=== PATIENT | female | born 1980 | race Caucasian/White ===

== ENCOUNTER 2017-02-26 08:16 | Inpatient (IN) | payer OTHER ==
[~2017-02-26] VITALS: Ht 157.5 cm; Wt 65.8 kg
[2017-02-26] VITALS (13 sets, daily range): BP systolic 90–119; BP diastolic 53–73
[~2017-02-26 08:16] MED LIST: Dexamethasone 20mg/5ml IVP ONE; OXYCODONE HCL15 M1 ORAL; OXYCONTIN20 MG ORAL; ceFAZolin sod 1 GM in NS 55 ML IVPB ONE
[2017-02-26] MEDS ORDERED: KEPPRA500 M4 ORAL (09:14)
[2017-02-26] MEDS ORDERED: OXYCODONE IR15 MG ORAL (09:14)
[2017-02-26] MEDS ORDERED: Chloraseptic Spray 20mL Bottle ORAL PRN (09:30)
[2017-02-26] MEDS ORDERED: LORazepam Inj 2mg/ml 1ml IV PRN ×2 (09:30→10:15)
[2017-02-26] MEDS ORDERED: oxyCODONE 15mg IR tab ORAL PRN (09:30)
[2017-02-26] MEDS ORDERED: Milk of Magnesia 30ml Ud ORAL PRN (09:30)
[2017-02-26] MEDS ORDERED: HYDROmorphone 1mg/ml Carpuject SUBQ PRN (09:30)
[2017-02-26] MEDS ORDERED: fentaNYL 100 mcg/2 mL IV ONE (10:00)
[2017-02-26] MEDS ORDERED: Nimbex 2mg/ml Inj 10ML IVP ONE (10:00)
[2017-02-26] MEDS ORDERED: Lidocaine 1% MPF 10mg/ml 5ml ONE (10:00)
[2017-02-26] MEDS ORDERED: Lidocaine 1% Plain 30 ml INJ ONE (10:00)
[2017-02-26] MEDS ORDERED: Dexamethasone 4mg/ml vial ONE (10:00)
[2017-02-26] MEDS ORDERED: Midazolam 2mg/2ml Inj ONE (10:00)
[2017-02-26] MEDS ORDERED: LR 1000ml ONE (10:00)
[2017-02-26] MEDS ORDERED: Sterile Water Irrig 1000ml IRRIG ONE (10:00)
[2017-02-26] MEDS ORDERED: Glycopyrrolate 0.2mg/ml 1ml Vial ONE (10:00)
[2017-02-26] MEDS ORDERED: Neostigmine 1mg/ml 10ml Inj ONE (10:00)
[2017-02-26] MEDS ORDERED: fentaNYL 250mcg/5ml ONE (10:00)
[2017-02-26] MEDS ORDERED: Propofol 10mg/ml 100ml btl IV ONE (10:00)
[2017-02-26] MEDS ORDERED: NS Irrig 1000ml ONE (10:00)
[2017-02-26] MEDS ORDERED: Bacitracin 50000 Units Vial ONE (10:01)
[2017-02-26] MEDS ORDERED: Thrombin 5000 units TOPIC ONE (10:01)
[2017-02-26] MEDS ORDERED: Surgicel 4in x 8in TOPIC ONE (10:01)
[2017-02-26] MEDS ORDERED: Bupivacaine w/Epi 0.5% 30ml Vial INJ ONE (10:01)
[2017-02-26] MEDS ORDERED: Vancomycin 1gm inj IVPB ONE (10:01)
--- NOTE | 2017-02-26 10:12 | Anethesia Preoperative Eval ---
Anesthesia Pre-op PMH/ROS General Date of Evaluation: Feb 26, 2017 Time of Evaluation: 10:09 Anesthesiologist: Rylie ASA Score: ASA 3 Mallampati Score Class I : Soft palate, uvula, fauces, pillars visible Class II: Soft palate, uvula, fauces visible Class III: Soft palate, base of uvula visible Class IV: Only hard plate visible Mallampati Classification: Class III Surgeon: Kateryna Diagnosis: Neck Pain Surgical Procedure: AACDF C5-6, Posterior Family History: no anesthesia problems Allergies: Coded Allergies: BUPROPION (Verified Allergy, Intermediate, RASH; SWELLING, 05/10/15) CODEINE (Verified Allergy, Intermediate, head itch , 02/26/17) CORTISONE (Verified Allergy, Intermediate, SWELLING; RASH, 05/10/15) LAMOTRIGINE (Verified Allergy, Intermediate, SWELLING ;RASH, 05/10/15) TRAMADOL (Verified Allergy, Intermediate, RASH; SWELLING, 05/10/15) ACETAMINOPHEN (Unverified Adverse Reaction, Intermediate, NAUSEA AND VOMITING, 05/10/15) HYDROCODONE (Unverified Adverse Reaction, Intermediate, NAUSEA AND VOMITING, 05/10/15) Medications: see eMAR Past Medical History Neurologic/Psychiatric: Reports: depression/anxiety, other - Seizures Hematology/Immune: Reports: anemia, other - SLE PSxH Narrative: TL, L ACL , Cervical Spine Anesthesia Pre-op Phys. Exam Physician Exam Last Vital Signs Date Time Temp Pulse Resp B/P Pulse Ox O2 Delivery O2 Flow Rate FiO2 02/26/17 08:53 98.1 75 18 101/57 100 Room Air Constitutional: NAD Neurologic: CN 2-12 intact Cardiovascular: RRR Respiratory: CTA Gastrointestinal: S/NT/ND Airway Exam MO: full ROM: limited Anesthesia Pre-op A/P Labs Urine Test Test 02/26/17 08:35 Urine HCG, Qualitative Negative Risk Assessment & Plan Assessment: ASA 3 Plan: GA, Glidescope, BIS Status Change Before Surgery: No Pre-Antibiotics Dru grams Ancef IV Given Within 1 Hr of Incision: Yes Time Given: 10:31 Mckay Youngblood MD Feb 26, 2017 10:12
[2017-02-26] MEDS ORDERED: LR 1000ml 1,000 ML IVLG SCH (10:13)
[2017-02-26] MEDS ORDERED: fentaNYL 100 mcg/2 mL IV PRN (10:15)
[2017-02-26] MEDS ORDERED: Ketorolac 30mg Inj IV PRN (10:15)
[2017-02-26] MEDS ORDERED: DiphenhydrAMINE 50mg/ml Inj IVP PRN (10:15)
[2017-02-26] MEDS ORDERED: Metoclopramide 10mg/2ml Inj IVP PRN ×2 (10:15→15:45)
[2017-02-26] MEDS ORDERED: Atropine Inj 1mg/10ml Syr IV PRN (10:15)
[2017-02-26] MEDS ORDERED: Ketorolac 60mg Inj IV PRN (10:15)
[2017-02-26] MEDS ORDERED: Midazolam 2mg/2ml Inj IVP PRN (10:15)
--- NOTE | 2017-02-26 10:20 | Pre-Procedure Note/Attestation ---
Pre-Procedure Note/Attestation Complete Prior to Procedure Planned Procedure: not applicable Procedure Narrative: Anterior C5-6 excision pseudarthrosis, removal plate, fusion, possible plate fixation Posterior lateral mass instrumentation with fusion C5-C6 Indications for Procedure Pre-Operative Diagnosis: C5-6 Fracture, pseudarthrosis Attestation I attest that I discussed the nature of the procedure; its benefits; risks and complications; and alternatives (and the risks and benefits of such alternatives ), prior to the procedure, with the patient (or the patient's legal customer response representative). I attest that, if there was a reasonable possibility of needing a blood transfusion, the patient (or the patient's legal customer response representative) was given the [place] Department [employer] Services standardized written summary, pursuant to the [place] Blood Safety Act ([place] Health and Safety Code # 1645, as amended). I attest that I re-evaluated the patient just prior to the surgery and that there has been no change in the patient's H&P, except as documented below: PASCUAL MG Feb 26, 2017 10:20
[2017-02-26] MEDS ORDERED: Acetaminophen (Non formulary) 100 ML IV ONE (11:00)
--- NOTE | 2017-02-26 12:06 | Immediate Post-Op Evaluation ---
Immediate Post-Op Evalulation Immediate Post-Op Evalulation Procedure: ACDF C5-6, Posteior Date of Evaluation: Feb 26, 2017 Time of Evaluation: 14:15 IV Fluids: 1000 LR Blood Products: 0 Estimated Blood Loss: 30 Urinary Output: 400 Blood Pressure Systolic: 92 Blood Pressure Diastolic: 53 Pulse Rate: 57 Respiratory Rate: 16 O2 Sat by Pulse Oximetry: 100 Temperature (Fahrenheit): 97 Pain Score (1-10): 3 Nausea: No Vomiting: No Complications 0 Patient Status: awake, reacts, patent, extubated, none Hydration Status: adequate Dru Grams Ancef IV Given Within 1 Hr of Incision: Yes Time Given: 10:31 Mckay Youngblood MD Feb 26, 2017 12:06
[2017-02-26] MEDS: Meperidine 25mg/0.5ml Inj IV PRN ×2 (14:55→15:03)
--- NOTE | 2017-02-26 15:06 | Diagnostic Imaging Report ---
Indication: Neck Pain Findings: Fluoroscopic views of the cervical spine were obtained. Intraoperative views demonstrating posterior fusion hardware at C5 and C6. The lower extent of the fusion is not seen on any of the images. Impression: Intraoperative imaging
--- NOTE | 2017-02-26 15:31 | Brief Operative Note ---
Immediate Post Operative Note Operative Note Pre-op Diagnosis: C5-6 Fracture, pseudarthrosis Procedure: Operation through scar removal plate C5-6. exploration fusion mass / fracture / pseudarthrosis C5-6 fluroscopy ssep microscope hemivertebrectomy C5, C6 correction deformity aero-c lordotic device incertion C5-6 fusion C5-6 osteoinductive implant C5-C6 posterior lateral mass instrumentation Left C5, C6 factet fusion C5-C6 Post-op Diagnosis: same as pre-op Findings: consistent w/pre-op dx studies Surgeon: Kateryna Hydraulic Design Engineer: Audrey Anesthesiologist: Rylie Anesthesia: general Specimen: none Complications: none Condition: stable Estimated Blood Loss: minimal Drains: none Implant(s) used?: Yes PASCUAL MG Feb 26, 2017 15:31
[2017-02-26] MEDS: D5 1/2NS 1,000 ML IV SCH (17:01)
[2017-02-26] MEDS ORDERED: Docusate 100mg/10ml Liq NG SCH (18:00)
[2017-02-26] MEDS: ceFAZolin sod 1 GM in D5W 55 ML IV SCH (18:35)
[2017-02-26] MEDS: Docusate 100mg cap ORAL SCH (18:37)
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
[2017-02-27] VITALS: BP 98/53
--- NOTE | 2017-02-27 00:15 | Operative Note - Dictated ---
SURGEON: Philip Avendaño Ph.D. M.D. SUPERVISOR COIL WINDING SURGEON: Jerald Ch M.D. ANESTHESIA: Dr. Rylie arita with intubation. ESTIMATED BLOOD LOSS: Minimal. ADMITTING/PREOPERATIVE DIAGNOSIS: C5-C6 fracture/pseudoarthrosis. POSTOPERATIVE DIAGNOSIS: C5-C6 fracture/pseudoarthrosis. OPERATIVE PROCEDURES: 1. Anterior operation through scar tissue. 2. Removal of anterior internal plate fixation C5-C6. 3. Exploration of fusion mass. 4. Excision of pseudarthrosis/fracture. 5. Pollo-vertebrectomy C5 and pollo-vertebrectomy C6. 6. Interpositional Aero-C lordotic interbody device with correction of deformity. 7. Fusion C5-C6. 8. SSEP monitoring. 9. High-power microscopic dissection. 10. Fluoroscopic imaging interpreted by surgeons. 11. Posterior facet fusion right C5-C6. 12. Placement posterior inductive material anterior C5-C6. 13. Posterior right facet fusion C5-C6. 14. Lateral mass instrumentation C5-C6. 15. Intraoperative fluoroscopy interpreted by surgeons. OPERATIVE PROCEDURE: The patient brought to the operating room and in the supine position. General anesthesia with intubation was induced. IV antibiotics, IV Decadron were administered prior to incision time 30 minutes. Anterior cervical spine was sterilely prepped and draped free in usual sterile fashion. Utilizing the prior left transverse incision, sharp dissection was carried through scar tissue, dermis and epidermis. Electrocautery dissection was carried through scar tissue and subcutaneous tissue to the level of the platysmas muscle that was identified, isolated, and transected in line with the incision. Blunt dissection was carried through scar tissue medial to the carotid sheath and the left sternocleidomastoid muscle through the deep cervical and pretracheal fascia to the midline between the right and left longus colli muscles. Anterior internal plate fixation was identified and isolated. Retractors placed. Anterior internal fixation plate was removed. The screws were noted to be loose. Plate intact. No evidence of screw fracture. Exploration was undertaken of the anterior fusion mass C5-C6. Under high-power magnification, Midas Mukund bur dissection was utilized for excision of the interpositional graft at C5-C6, with motion-grossly noted. Pollo-vertebrectomy was undertaken inferior C5 and superior C6. Appropriate dimensions Aero-C lordotic graft was placed with correction of kyphosis to lordosis. SSEP monitoring stable at all times. Fixation was undertaken with the Aero-C cephalad, caudad. Fluoroscopy demonstrated excellent alignment and positioning. Aero-C contained a combination of autograft and osteoinductive material for fusion. Wound was irrigated with antibiotic-containing saline. Exploration did not reveal any excoriation or laceration of vital structures. FloSeal was minimally applied overlying the graft area. A 500 mg of vancomycin powder applied. Sequential reapproximation the platysmas muscle, subcutaneous tissue dermis and epidermis. Dermis and epidermis further reapproximated with surgical strips and sterile bandage maintain place with tape. The patient was carefully turned maintaining neutral posture of the cervical spine at all times the prone position on a new operating table. All new instruments were utilized. After appropriate position, posterior cervical spine was sterilely prepped and draped free in usual sterile fashion. Cross-table imaging with a spinal needle placed under sterile conditions, percutaneously in the subcutaneous tissue only for determination of incision placement. Level was marked. Needle was removed. Longitudinal midline incision was placed in dermis and epidermis. Electrocautery dissection was carried to the subcutaneous tissue to the level of the cervical thoracic fascia was incised right of midline with exposure of the facets of C5 and C6. Confirmation of fluoroscopic guidance with markers. Fluoroscopic with the facet joint complex was denuded of cartilage. Packed with osteo inductive material for fusion. Lateral mass instrumentation was undertaken of the appropriate dimensions at C5 and C6. Probing of the hole drill by hand revealed intact cortical margins. SSEP monitoring stable. Tapping was undertaken followed with screw insertion with excellent fixation. Appropriate screw depth was utilized. Interpositional appropriate length of j carlos was placed and torqued into position. Wound was irrigated with antibiotic-containing saline with care taken to not dislodge the osteopromotive/inductive material facet fusion. A 1 g vancomycin powder applied. Reapproximation sequentially with Vicryl suture material cervicothoracic fascia subcutaneous tissue, dermis and epidermis. Staple sutures applied. Sterile bands applied maintained in place with tape. The patient carefully turned to the prone position from the prone to the supine position on the transport bed. The patient awakened extubated in the operating room, and transported to postop recovery in good stable condition. Philip Avendaño M.D. DR: Brigida JOB#: [id number] CC: Jerald Ch M.D.; Fax#: [phone]
--- NOTE | 2017-02-27 00:40 | 48 Hour Post Anesthesia Eval ---
Post Anesthesia Evaluation Procedure: ACDF C5-6, Posteior Date of Evaluation: Feb 27, 2017 Time of Evaluation: 11:56 Blood Pressure Systolic: 90 0: 56 Pulse Rate: 82 Respiratory Rate: 20 Temperature (Fahrenheit): 98.3 O2 Sat by Pulse Oximetry: 95 Airway: patent Nausea: No Vomiting: No Pain Intensity: 2 Hydration Status: adequate Cardiopulmonary Status: Stable Mental Status/LOC: patient returned to baseline Follow-up Care/Observations: 0 Post-Anesthesia Complications: 0 Follow-up care needed: N/A Mckay Youngblood MD Feb 27, 2017 00:40
[2017-02-27] MEDS: ceFAZolin sod 1 GM in D5W 55 ML IV SCH ×2 (01:34→09:43)
[2017-02-27] MEDS: D5 1/2NS 1,000 ML IV SCH (03:00)
[2017-02-27 04:00] VITALS: BP 95/60
--- NOTE | 2017-02-27 07:30 | Progress Note ---
DATE: 02/27/2017 ACUTE PAIN MANAGEMENT PHYSICIAN PROGRESS NOTE MEDICATIONS: Medication administration record reviewed. Medications include Chloraseptic spray, Protonix, oxycodone, Zofran, Reglan, Demerol, milk of magnesia, Ativan, Keppra, Dilaudid, Colace, Benadryl, Valium, Catapres, and Mylanta. LABORATORY STUDIES: No interval laboratory studies. OBJECTIVE: VITAL SIGNS: Afebrile, pulse 76, respirations 20, blood pressure 95/60, and oxygen saturation 94% on supplemental oxygen. I spent over 60 minutes in consultation today. I saw the patient at bedside with the nurse RN, Boris. The patient has been swallowing, breathing, and phonating within normal limits. A soft collar is in place. Nasal cannula oxygen is in place and the patient is breathing comfortably. She is grossly neurologically intact. Moving all extremities x4. The patient has been voiding plenty of urine and tolerating liquids with good intake and no nausea. After further detailed discussion continued from yesterday, the patient now states that she has been seen her outpatient pain doctor and was most recently on Suboxone 10 days ago. She has been using oxycodone over the past 10 days to empty the Suboxone from her system prior to surgery. She already has a prescription for oxycodone at home. Continue until she follows up with her outpatient doctor to resume her Suboxone. Here in the hospital, her current analgesic regimen with p.r.n. Dilaudid, Valium, and oxycodone has been affective. I would continue this current analgesic plan at this time. I will continue breakthrough dose of Ativan in case of any seizures. She has been receiving her Keppra for seizure prophylaxis. I have streamlined her medication list to reduce the risk of medication administration errors with her adequate oral intake of liquids. I will give Hep-Lock with IV fluids to encourage intervention. She is to continue with the Chloraseptic spray, which has been helpful for topical sore throat complaints. The patient does live at home with four children and her parents. She states that her cane flume watchman's office will help arrange transportation home. I will defer discharge planning at this time to the surgeon, Dr. Avendaño. Demond Kerns M.D. DR: Miryam JOB#: [id number] CC:
[2017-02-27 07:35] VITALS: BP 98/70
[2017-02-27] MEDS: Docusate 100mg cap ORAL SCH (08:28)
[2017-02-27] MEDS ORDERED: D5 1/2NS 1000ml IV ONE (11:59)
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
== END 2017-02-27 12:00 | disposition home or self-care (01) | DRG 454 ==
LOC: SDSOVERFLO 08:16 → 3E 16:06
PROC: 0PP304Z Removal of Internal Fixation Device from Cervical Vertebra, Open Approach (ICD-10-PCS; principal; 2017-02-26 10:00)
PROC: 0RG10Z1 (ICD-10-PCS; principal; 2017-02-26 10:00)
PROC: 0RG10A0 Fusion of Cervical Vertebral Joint with Interbody Fusion Device, Anterior Approach, Anterior Column, Open Approach (ICD-10-PCS; principal; 2017-02-26 10:00)
DX: M96.0 Pseudarthrosis after fusion or arthrodesis (principal); S12.400A Unspecified displaced fracture of fifth cervical vertebra, initial encounter for closed fracture; M32.9 Systemic lupus erythematosus, unspecified; R56.9 Unspecified convulsions; S12.500A Unspecified displaced fracture of sixth cervical vertebra, initial encounter for closed fracture; Y83.8 Other surgical procedures as the cause of abnormal reaction of the patient, or of later complication, without mention of misadventure at the time of the procedure; W19.XXXA Unspecified fall, initial encounter; V89.2XXS Person injured in unspecified motor-vehicle accident, traffic, sequela; G89.4 Chronic pain syndrome; F17.200 Nicotine dependence, unspecified, uncomplicated; F41.9 Anxiety disorder, unspecified; Z88.6 Allergy status to analgesic agent; Z88.8 Allergy status to other drugs, medicaments and biological substances
CPT/HCPCS: 36415; 72040; 76001; 80299; 81025; 86850; 86900; 86901; 87081; J2180; J2250; J2405; J2710; J2765